=== PATIENT | female | born 1950 ===

== ENCOUNTER 2016-07-28 07:09 | Inpatient (IN) | payer BC ==
[~2016-07-28] VITALS: Ht 165.1 cm; Wt 108.9 kg
[2016-07-28] VITALS (9 sets, daily range): BP systolic 107–122; BP diastolic 53–67
[~2016-07-28 07:09] MED LIST: CEFAZOLIN 2GM PREMIX 50 ML IV PRN; DICL100G7 TP; DIME50TA PO; FENTANYL PF 100 MCG/2 ML VIAL. IV PRN; HYDROCODONE/APAP 7.5/325MG TABLET. PO PRN; HYDROMORPHONE 2 MG/ML VIAL. IV PRN; IBUP200T58 PO; IV RINGERS,LACTATED 1000ML 1,000 ML IV SCH; LIDOCAINE 1% 1 ML SYRINGE. ID PRN; MELOXICAM 7.5 MG TABLET PO PRN; MORPHINE SULFATE 2 MG/ML DISP.SYRIN. IV PRN; MORPHINE SULFATE 5 MG, KETOROLAC TROMETHAMINE 30 MG, ROPIVacaine 0.5% PF 60 ML, EPINEPH... INT ART ONE; ONDANSETRON PF 4 MG/2 ML VIAL. IV PRN; TRANEXAMIC ACID 1,000 MG in IV NS 50ML -- 1ST BAG INJ ONE
[2016-07-28] MEDS ORDERED: LIDOCAINE 2% 100 MG/5 ML DISP.SYRIN. ONE (07:54)
[2016-07-28] MEDS ORDERED: MIDAZOLAM HCL 2 MG/2 ML VIAL. ONE (07:54)
[2016-07-28] MEDS ORDERED: FENTANYL PF 250 MCG/5 ML VIAL. ONE (07:54)
[2016-07-28] MEDS ORDERED: ROCURONIUM 50 MG/5 ML VIAL. ONE (07:54)
[2016-07-28] MEDS ORDERED: PROPOFOL 20 ML IV ONE (07:54)
[2016-07-28] MEDS ORDERED: ONDANSETRON PF 4 MG/2 ML VIAL. ONE (07:54)
[2016-07-28] MEDS ORDERED: DEXAMETHASONE SOD PHOS 20 MG/5 ML VIAL. ONE ×2 (07:54→08:42)
[2016-07-28] MEDS ORDERED: TRANEXAMIC ACID 1,000 MG in IV NS 50ML -- 2ND BAG INJ ONE (08:00)
[2016-07-28] MEDS ORDERED: SCOPOLAMINE 1.5MG PATCH. TD ONE ×2 (08:15→08:17)
[2016-07-28] MEDS ORDERED: ROPIVacaine 0.5% PF 30 ML VIAL. ONE (08:42)
[2016-07-28] MEDS ORDERED: EPINEPHRINE 30 MG/30 ML VIAL. ONE (08:51)
[2016-07-28] MEDS ORDERED: EPHEDRINE PF IN SALINE 50 MG/5 ML DISP.SYRIN. IV ONE (09:49)
[2016-07-28] MEDS ORDERED: NEOSTIGMINE METHYLSULFATE 5 MG/5 ML SYRINGE. ONE (11:04)
[2016-07-28] MEDS ORDERED: GLYCOPYRROLATE 1 MG/5 ML VIAL. ONE (11:04)
[2016-07-28] MEDS: PROCHLORPERAZINE 10 MG/2 ML VIAL. IV PRN ×2 (11:50→12:36)
[2016-07-28] MEDS ORDERED: CALCIUM CARBONATE 500 MG TAB.CHEW PO PRN (12:30)
[2016-07-28] MEDS ORDERED: PROCHLORPERAZINE 5 MG TABLET. PO PRN (12:30)
[2016-07-28] MEDS ORDERED: ZOLPIDEM 5 MG TABLET. PO PRN (12:30)
[2016-07-28] MEDS ORDERED: TRAMADOL 50 MG TABLET. PO PRN ×2 (12:30)
[2016-07-28] MEDS ORDERED: HYDROMORPHONE 2 MG/ML VIAL. IV PRN (12:30)
[2016-07-28] MEDS ORDERED: ACETAMINOPHEN 325 MG TABLET. PO PRN (12:30)
[2016-07-28] MEDS ORDERED: 0.9 % SODIUM CHLORIDE 10 ML DISP.SYRIN. IV PRN (12:30)
[2016-07-28] MEDS ORDERED: OXYCODONE/APAP 5/325 TABLET. PO PRN (12:30)
[2016-07-28] MEDS ORDERED: DEXTROSE 50% 25 GM / 50ML DISP.SYRIN. IV PRN (12:30)
--- NOTE | 2016-07-28 12:40 | PDOC ---
BRIEF OPERATIVE NOTE Date: Jul 28, 2016 Pre-Op Diagnosis rotator cuff tear, impingement, ac joint pain Post-Op Diagnosis same Procedure Performed left shoulder scope, decompression, distal clavicle excision Surgeon [place] Anesthesia Type: General Blood Loss <50cc Findings above Complications none CARLOZ NOVA MD Jul 28, 2016 12:40
[2016-07-28] MEDS ORDERED: SEVOFLURANE 61 TO 120 MINUTES. IH ONE (14:36)
[2016-07-28] MEDS: IV DEXTROSE 5 %-0.45 % NACL 1,000 ML IV SCH (15:08)
[2016-07-28] MEDS: FERROUS SULFATE 325 MG TABLET PO SCH (17:29)
[2016-07-28] MEDS: CELECOXIB 200 MG CAPSULE PO SCH (21:18)
[2016-07-29] MEDS: IV DEXTROSE 5 %-0.45 % NACL 1,000 ML IV SCH ×2 (00:13→08:20)
--- NOTE | 2016-07-29 00:52 | OP ---
DATE OF SURGERY: 07/28/2016 ORTHOPEDIC OPERATIVE NOTE PREOPERATIVE DIAGNOSES: Rotator cuff tear and impingement, acromioclavicular joint degenerative joint disease and pain. POSTOPERATIVE DIAGNOSES: Rotator cuff tear and impingement, acromioclavicular joint degenerative joint disease and pain. PROCEDURE: Left shoulder arthroscopy, subacromial decompression, distal clavicle excision, and mini open rotator cuff repair. SURGEON: Navneet Eisenberg MD ANESTHESIA: General endotracheal plus scalene block. ESTIMATED BLOOD LOSS: Less than 50 mL. COMPLICATIONS: None. OPERATIVE INDICATIONS: The patient had had some preexisting shoulder pain. It recently exacerbated from a fall within the past few months and has been weak and painful with any activities as well as lying on the shoulder since then. MRI had confirmed the clinical suspicion of a rotator cuff tear. I was concerned with the magnitude of the tear and the possibility of irreparability due to either retraction or poor tissue quality and if so, had discussed the possible backup treatment plan of a reverse shoulder arthroplasty to give her function. She is certainly happy with either approach as needed based on judgement and verbalized understanding of the risks, benefits, postoperative course of either procedure including possibility of nonhealing, nerve or blood vessel damage, infection, medical or other anesthetic complications and in any case, the long rehabilitation period would certainly be required certainly if possible rotator cuff repair would be attempted to preserve her treatment options in the future as well. Again all their questions were answered and consent was obtained that she agrees to proceed with operative evaluation and treatment. DESCRIPTION OF PROCEDURE: The patient was identified, procedure verified, patient placed in the supine position on the operating table. After adequate amounts of general endotracheal anesthesia plus a preexisting scalene block were obtained, she was placed in the beach chair position with the T-max positioner on the table and the spider arm [place]. Left shoulder was prepped and draped in standard sterile fashion. After timeout was performed, the patient and procedure identified and verified, a standard posterior portal was established, anterior portal established using spinal needle localization and the shoulder joint was systematically examined. Biceps anchor and tendon were found to be intact. Subscapularis was intact as was the capsular ligamentous structures and labrum. She did have some minor synovitis in this shoulder joint, but capsular ligamentous structures otherwise had good condition. She did have a large retracted rotator cuff tear involving the supraspinatus and infraspinatus tendons. I had examined this area from the subacromial area as well and noted that I was able to mobilize the rotator cuff well and tissue had reasonable quality. Given the good mobility and possibility of rotator cuff and the decision to proceed with the rotator cuff repair, a subacromial decompression was carried out converting the anterior acromial spur to a type 1 acromion using cutting block technique with arthroscopic bur. The distal clavicle was narrowed and degenerative with compromised joint space and therefore lateral 1 cm of the distal clavicle was excised, preserving the overlying joint capsule for stability. Bony fragments were removed with the arthroscopic shaver and the rotator cuff footprint was prepared. I judged that due to the complexity of the tear that a mini open repair would be preferable and the small deltoid splitting incision was made laterally in line with the lateral portal after traction suture was placed. A total of 2 [employer] 4.75 Healicoil anchors were placed along the medial aspect of the rotator cuff footprint. Sutures were passed in a mattress fashion separately using the FastPass suture passing device and tied with sliding locking knots backed up by alternating post-half hitches. The lateral row repair was supplemented in one case with a simple traction suture and lateral row was anchored in a crossing fashion with MULTIFIX S anchors placed laterally. Excellent watertight repair was achieved, then examined in all degrees of internal and external rotation. The irrigation carried out with normal saline solution. Muscle fascia was closed with #1 Vicryl sutures, subcutaneous closure with buried Vicryl subcuticular and portal closure with Monocryl. Steri-Strips and Mastisol were applied followed by sterile dressings and an immobilizer. The patient was extubated and transferred to postop holding in stable condition having tolerated the procedure well. NAVNEET EISENBERG MD DR: VICKY/elisa JOB#: [id number] / [id number]
[2016-07-29 03:10] VITALS: BP 107/52
[2016-07-29] MEDS ORDERED: MAGNESIUM HYDROXIDE 2,400 MG/30 ML ORAL.SUSP. PO PRN (06:00)
[2016-07-29 06:15] VITALS: BP 109/65
[2016-07-29 07:45] LABS: HEMATOCRIT 40.6 % (36.0-47.0); HEMOGLOBIN 12.9 g/dL (12.0-15.5)
[2016-07-29] MEDS: OXYCODONE/APAP 7.5/325 TABLET. PO PRN ×2 (08:21→12:14)
[2016-07-29] MEDS: FERROUS SULFATE 325 MG TABLET PO SCH (08:22)
[2016-07-29] MEDS: CELECOXIB 200 MG CAPSULE PO SCH (08:22)
[2016-07-29] MEDS ORDERED: MULTIVITAMIN with MINERAL TABLET. PO SCH (09:00)
[2016-07-29] MEDS ORDERED: SENNOSIDES/DOCUSATE 8.6/50MG TABLET. PO SCH (09:00)
[2016-07-29] MEDS ORDERED: OXYC-244 PO (12:52)
[2016-07-29 13:00] VITALS: BP 115/54
[2016-07-29] MEDS ORDERED: BISACODYL 10 MG SUPP.RECT PR PRN (16:00)
--- NOTE | 2016-07-30 04:06 | DS ---
DATE OF DISCHARGE: 07/29/2016 PRINCIPAL DIAGNOSIS: Status post left shoulder rotator cuff repair. DISPOSITION MEDICATIONS: Include Percocet 7.5/325 one p.o. q. 6 hours p.r.n. pain. FOLLOWUP: Dr. Eisenberg in 7-10 days. RESTRICTIONS: Include no active range of motion of the left upper extremity, left shoulder immobilizer on at all times at night, may remove for ____ exercises and fine motor use with elbow at side, remove dressings in 2 days, may then shower. BRIEF DESCRIPTION OF HOSPITAL COURSE: The patient was admitted postoperatively from a left shoulder arthroscopy decompression distal clavicle excision, and she has had some chronic difficulty since a gastric bypass procedure, tolerating medicines since then with postoperative nausea issues that it sufficiently resolved postoperative day #1. She was otherwise medically stable, underwent some mild physical therapy for outlining her restrictions and was discharged to home in stable condition with directions and prescription for outpatient physical therapy, which she is scheduled to undergo at, I believe, per rehab in [place], [place]. CARLOZ EISENBERG MD DR: VICKY/elisa JOB#: [id number] / [id number]
== END 2016-07-29 13:45 | disposition home or self-care (01) | DRG 512 ==
LOC: OPSVCIP 07:09 → 4 SOUTHEST 12:50
PROVIDERS: ADMIT Orthopaedic Surgery; ATTEND Orthopaedic Surgery
PROC: 0LQ20ZZ Repair Left Shoulder Tendon, Open Approach (ICD-10-PCS; 2016-07-28)
PROC: 0PBB0ZZ Excision of Left Clavicle, Open Approach (ICD-10-PCS; 2016-07-28)
PROC: 0RNK0ZZ Release Left Shoulder Joint, Open Approach (ICD-10-PCS; principal; 2016-07-28 09:20)
DX: M75.102 Unspecified rotator cuff tear or rupture of left shoulder, not specified as traumatic (principal); M19.019 Primary osteoarthritis, unspecified shoulder
CPT/HCPCS: 36415; 85014; 85018; 86850; 86900; 86901; C1713; J0171; J0690; J0780; J1100; J1885; J2250; J2270; J2405; J2704; J2710; J2795; J3010; J3490; J7120; 97530; 97535; C1769